=== PATIENT | female | born 2005 | race Hispanic/Latino ===

== ENCOUNTER → 2023-01-12 | Day surgery (SDC) | payer BC, OTHER ==
[~2023-01-12] MED LIST: FENTANYL CITRATE/PF 100MCG/2 ML INJ ONE; GLYCOPYRROLATE INJ 0.2 MG/ML VIAL ONE; HYOSCYAMINE SULFATE 0.5 MG/ML INJ ONE; LIDOCAINE HCL 2% LOCAL INJ 5 ML SDV VIAL INJ ONE; POVIDONE IODINE 0.05% 0.05 % ML PO ONE; PROPOFOL IV EMULSION 10 MG/ML 20 ML VIAL ONE
[2023-01-12 09:10] VITALS: BP 112/80
== END | disposition home or self-care (01) ==
LOC: OR 06:24
PROVIDERS: ATTEND Internal Medicine Gastroenterology
DX: K29.70 Gastritis, unspecified, without bleeding (principal); K63.5 Polyp of colon; K29.50 Unspecified chronic gastritis without bleeding; K25.9 Gastric ulcer, unspecified as acute or chronic, without hemorrhage or perforation; K20.90 Esophagitis, unspecified without bleeding; K63.89 Other specified diseases of intestine; K62.89 Other specified diseases of anus and rectum
CPT/HCPCS: 43239; 45380; 45385; 81025; C9113; J1980; J2001; J2704; J3010; 45378

== ENCOUNTER → 2023-02-27 | Outpatient (CLI) | payer OTHER | LOC: US 13:05 | PROVIDERS: ATTEND Nurse Practitioner | DX: R10.30 Lower abdominal pain, unspecified (principal); R10.10 Upper abdominal pain, unspecified | CPT/HCPCS: 76700; 76856 ==